=== PATIENT | female | born 1960 ===

== ENCOUNTER 2022-03-27 10:09 | Day surgery (SDC) | payer OTHER ==
[~2022-03-27] VITALS: Ht 160 cm; Wt 102.5 kg
[2022-03-27] MEDS ORDERED: fentaNYL citrate 0.05 MG/ML VIAL ONE (11:50)
[2022-03-27] MEDS ORDERED: MIDAZOLAM 5 MG/5 ML VIAL ONE (11:50)
[2022-03-27] MEDS ORDERED: diphenhydrAMINE 50 MG/ML VIAL ONE (11:50)
[2022-03-27] MEDS ORDERED: MIDAZOLAM 2 MG/2 ML VIAL IV ONE (12:40)
[2022-03-27] MEDS ORDERED: fentaNYL citrate 0.05 MG/ML VIAL IVP ONE (12:40)
== END 2022-03-27 12:47 | disposition home or self-care (01) ==
LOC: MDS 10:09 → MMU 10:53 → MDS 12:47
PROVIDERS: ATTEND Internal Medicine Gastroenterology
DX: R13.10 Dysphagia, unspecified (principal); K21.9 Gastro-esophageal reflux disease without esophagitis; K44.9 Diaphragmatic hernia without obstruction or gangrene; I10 Essential (primary) hypertension; M19.042 Primary osteoarthritis, left hand; Z79.899 Other long term (current) drug therapy; Z20.822 Contact with and (suspected) exposure to COVID-19
CPT/HCPCS: 43239; 87426; J2250; J3010; J7030; J1200